=== PATIENT | female | born 1980 | race American Indian/Alaskan Native ===

== ENCOUNTER 2018-01-31 13:15 | Emergency (ER) | payer OTHER ==
[2018-01-31 14:01] VITALS: BP 146/84
[2018-01-31] MEDS ORDERED: TORADOL IM ONE (14:57)
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
== END 2018-01-31 15:19 | disposition home or self-care (01) ==
LOC: ED 13:15
DX: M54.5 Low back pain (principal); M54.2 Cervicalgia; M25.511 Pain in right shoulder
CPT/HCPCS: 96372; 99283; J1885